=== PATIENT | male | born 1990 | race Caucasian/White ===

== ENCOUNTER 2016-09-26 16:57 | Inpatient (IN) | payer OTHER ==
[~2016-09-26] VITALS: Ht 185.4 cm; Wt 81.0 kg
[2016-09-26 17:01] VITALS: BP 142/78; PULSE 88; RESP 16; TEMP 98.9; O2SAT 92
[2016-09-26 17:04] VITALS: O2SAT 96
[2016-09-26] MEDS ORDERED: LISD40 PO (17:06)
[2016-09-26] MEDS ORDERED: SODIUM CHLOR 0.9% 1000 ML INJ 1,000 ML IV SCH ×2 (17:13→20:00)
[2016-09-26] MEDS ORDERED: HYDROmorphone HCL PF 1 MG/ML VIAL IV PUSH ONE ×2 (17:15→18:30)
[2016-09-26] MEDS ORDERED: ONDANSETRON HCL 4 MG/2 ML VIAL IV PUSH ONE (17:15)
[2016-09-26] MEDS ORDERED: SODIUM CHLORIDE 0.9% FLUSH 5 ML FLUSH IVF PRN ×2 (17:15→21:45)
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
[2016-09-26] MEDS ORDERED: IOHEXOL 350 MG/ML 10 ML VIAL (for RAD DIAG) IV ONE (18:11)
[2016-09-26 18:14] LABS: AUTOMATED NEUTROPHIL # 8.7 TH/MM3 (1.8-7.7); BASOPHIL % 0.3 % (0.0-2.0); EOSINOPHIL % 0.3 % (0.0-4.0); HEMATOCRIT 37.1 % (39.0-51.0); HEMO FLAGS DIFF FINAL; LYMPH % 7.9 % (9.0-44.0); LYMPHOCYTE # 0.8 TH/MM3 (1.0-4.8); MEAN CELL VOLUME 90.7 FL (80.0-100.0); MEAN CORPUSCULAR HEMOGLOBIN 31.6 PG (27.0-34.0); MEAN CORPUSCULAR HGB CONC 34.8 % (32.0-36.0); MONO % 4.8 % (0.0-8.0); NEUT % 86.7 % (16.0-70.0); PLATELET COUNT 202 TH/MM3 (150-450); RED BLOOD COUNT 4.09 MIL/MM3 (4.50-5.90); RED CELL DISTRIBUTION WIDTH 13.2 % (11.6-17.2); WHITE BLOOD COUNT 10.1 TH/MM3 (4.0-11.0)
[2016-09-26 18:20] VITALS: RESP 16; O2SAT 98
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
[2016-09-26 18:30] LABS: APTT (PATIENT) 25.4 SEC (24.3-30.1); INTERNATIONAL NORMALIZED RATIO 1.1 RATIO; PROTHROMBIN TIME - PATIENT 12.5 SEC (9.8-11.6)
[2016-09-26] MEDS ORDERED: SODIUM CHLOR 0.9% 1000 ML INJ 1,000 ML IV ONE (18:30)
[2016-09-26 18:39] LABS: BICARBONATE 27.7 MEQ/L (21.0-32.0); POTASSIUM 4.1 MEQ/L (3.5-5.1)
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
[2016-09-26] MEDS ORDERED: SODIUM CHLORIDE 0.9% FLUSH 5 ML FLUSH IV FLUSH PRN (19:30)
[2016-09-26] MEDS ORDERED: SENNOSIDES 8.6 MG TAB PO PRN (19:45)
[2016-09-26] MEDS ORDERED: MAGNESIUM HYDROXIDE SUSP 30 ML CUP PO PRN (19:45)
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
[2016-09-26 20:11] VITALS: O2SAT 100
[2016-09-26 20:18] VITALS: BP 151/83; PULSE 81; RESP 18; TEMP 98.2; O2SAT 99
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
[2016-09-26] MEDS ORDERED: SODIUM CHLORIDE 0.9% FLUSH 5 ML FLUSH IV FLUSH SCH (21:00)
[2016-09-26] MEDS ORDERED: CYCLOBENZAPRINE HCL 10 MG TAB PO SCH (21:00)
[2016-09-26] MEDS: HYDROmorphone HCL PF 1 MG/ML VIAL IV PRN ×2 (21:13→23:16)
[2016-09-26] MEDS: oxyCODONE HCL 10 MG CONTROLLED RELEASE TAB PO SCH (21:24)
[2016-09-26] MEDS ORDERED: ONDANSETRON HCL 4 MG/2 ML VIAL IV PRN (21:45)
[2016-09-26] MEDS ORDERED: Post-op Orders (for Pharmacy) MISC XX ONE (21:45)
[2016-09-26 22:30] VITALS: BP 133/83; PULSE 88; PULSE 92; RESP 17; TEMP 97.9; O2SAT 100
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
[2016-09-26] MEDS: SODIUM CHLOR 0.9% 1000 ML INJ 1,000 ML IV SCH (23:18)
[2016-09-27] VITALS (12 sets, daily range): BP systolic 116–139; BP diastolic 65–84; PULSE 69–100; RESP 16–24; TEMP 97.9–98.9; O2SAT 94–100
[2016-09-27] MEDS: oxyCODONE/ACETAMINOPHEN 5 MG/325 MG TAB PO PRN ×2 (00:23→08:18)
[2016-09-27] MEDS: HYDROmorphone HCL PF 1 MG/ML VIAL IV PRN ×8 (01:37→22:03)
[2016-09-27 04:44] LABS: AUTOMATED NEUTROPHIL # 7.1 TH/MM3 (1.8-7.7); BASOPHIL % 0.2 % (0.0-2.0); EOSINOPHIL % 0.5 % (0.0-4.0); HEMATOCRIT 34.4 % (39.0-51.0); HEMO FLAGS DIFF FINAL; LYMPH % 8.3 % (9.0-44.0); LYMPHOCYTE # 0.7 TH/MM3 (1.0-4.8); MEAN CORPUSCULAR HEMOGLOBIN 31.7 PG (27.0-34.0); MEAN CORPUSCULAR HGB CONC 35.2 % (32.0-36.0); MONO % 5.7 % (0.0-8.0); NEUT % 85.3 % (16.0-70.0); PLATELET COUNT 164 TH/MM3 (150-450); RED BLOOD COUNT 3.82 MIL/MM3 (4.50-5.90); RED CELL DISTRIBUTION WIDTH 13.5 % (11.6-17.2); WHITE BLOOD COUNT 8.3 TH/MM3 (4.0-11.0)
[2016-09-27 05:32] LABS: POTASSIUM 4.2 MEQ/L (3.5-5.1)
[2016-09-27] MEDS: oxyCODONE HCL 10 MG CONTROLLED RELEASE TAB PO SCH ×3 (05:54→21:51)
--- NOTE | 2016-09-27 06:01 | RADRPT ---
EXAM DATE/TIME: 09/27/2016 04:28 [facility] COMPARISON: No previous studies available for comparison. INDICATIONS : Shortness of breath. MEDICAL HISTORY : None. SURGICAL HISTORY : None. ENCOUNTER: Initial ACUITY: 1 day PAIN SCORE: Non-responsive. LOCATION: Bilateral chest FINDINGS: The lungs are symmetrically aerated. No evidence of pneumothorax. The heart is normal in size. Clint ateral clavicular plates. CONCLUSION: The lungs are clear. No pneumothorax seen. Rafael Caro MD on September 27, 2016 at 5:58 Board Certified Radiologist. This report was verified electronically.
[2016-09-27] MEDS: SODIUM CHLOR 0.9% 1000 ML INJ 1,000 ML IV SCH (07:29)
[2016-09-27] MEDS: SODIUM CHLORIDE 0.9% FLUSH 5 ML FLUSH IVF SCH ×2 (08:18→21:51)
[2016-09-27] MEDS: PANTOPRAZOLE SODIUM 40 MG VIAL IV SCH (08:18)
[2016-09-27] MEDS ORDERED: ENOXAPARIN SODIUM 40 MG/0.4 ML SYRINGE SQ SCH (09:00)
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
[2016-09-27] MEDS: LACTULOSE SYRUP 20 GM/30 ML CUP PO SCH (11:45)
[2016-09-27] MEDS: DOCUSATE SODIUM 50 MG/SENNA 8.6 MG TAB PO SCH ×2 (13:40→21:50)
--- NOTE | 2016-09-27 15:45 | EC ---
Study Study Date:09/27/2016 STUDY CONCLUSIONS SUMMARY - Left ventricle: The cavity size was normal. Wall thickness was normal. Systolic function was normal. The estimated ejection fraction was in the range of 55% to 60%. Wall motion was normal; there were no regional wall motion abnormalities. - Tricuspid valve: Mild regurgitation. If LV function is below 40, please consider prescribing an ACEI or ARB or document rationale for non-use. PROCEDURE DATA STUDY STATUS: Elective. Procedure: Transthoracic echocardiography. Image quality was good. Scanning was performed from the parasternal, apical, and subcostal acoustic windows. Study completion: The patient tolerated the procedure well. Transthoracic echocardiography. M-mode, complete 2D, complete spectral Doppler, and color Doppler. Patient status: Inpatient. CARDIAC ANATOMY LEFT VENTRICLE: The cavity size was normal. Wall thickness was normal. Systolic function was normal. The estimated ejection fraction was in the range of 55% to 60%. Wall motion was normal; there were no regional wall motion abnormalities. AORTIC VALVE: Trileaflet; normal thickness leaflets. Doppler: Transvalvular velocity was within the normal range. There was no stenosis. No regurgitation. Peak gradient: 10mm Hg (S). AORTA: Aortic root: The aortic root was normal in size. MITRAL VALVE: Structurally normal valve. Doppler: Transvalvular velocity was within the normal range. There was no evidence for stenosis. Trace regurgitation. Peak gradient: 2mm Hg (D). LEFT ATRIUM: The atrium was normal in size. RIGHT VENTRICLE: The cavity size was normal. Wall thickness was normal. PULMONIC VALVE: Doppler: Transvalvular velocity was within the normal range. There was no evidence for stenosis. No regurgitation. TRICUSPID VALVE: Structurally normal valve. Doppler: Transvalvular velocity was within the normal range. Mild regurgitation. PULMONARY ARTERY: The main pulmonary artery was normal-sized. Systolic pressure was within the normal range. RIGHT ATRIUM: The atrium was normal in size. PERICARDIUM: There was no pericardial effusion. SYSTEMIC VEINS: Inferior vena cava: The vessel was normal in size. BASIC MEASUREMENTS ADULT NORMAL Left ventricle LV internal dimension, ED, chordal level, 51.8 mm 43-52 PLAX LV internal dimension, ES, chordal level, 37.4 mm 23-38 PLAX Fractional shortening, chordal level, PLAX *28 % >29 LV posterior wall thickness, ED 7.32 mm IVS/LVPW ratio, ED 1.19 <1.3 Ventricular septum Septal thickness, ED 8.71 mm Aortic valve Leaflet separation 23 mm 15-26 Left atrium Anterior-posterior dimension 39 mm Right ventricle RV internal dimension, ED, PLAX 26.9 mm 19-38 BASIC MEASUREMENTS ADULT NORMAL Aortic valve Leaflet separation 23 mm 15-26 Aorta Root diameter, ED 35 mm 20-37 DOPPLER MEASUREMENTS ADULT NORMAL Aortic valve Peak velocity, S 160 cm/s Peak gradient, S 10 mm Hg Mitral valve Peak E-wave velocity 74 cm/s Peak A-wave velocity 61.7 cm/s Peak gradient, D 2 mm Hg Peak E/A ratio 1.2 Tricuspid valve Regurgitant peak velocity 294 cm/s Peak RV-RA gradient, S 35 mm Hg Maximal regurgitant velocity 294 cm/s LEGEND: Mean values are shown as u=mean value. Asterisk (*) garcía values outside specified normal range. Prepared and signed by John Marroquin [id number]
[2016-09-27] MEDS: METHOCARBAMOL 500 MG TAB PO SCH ×2 (17:45→21:50)
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
[2016-09-27] MEDS: MAGNESIUM HYDROXIDE SUSP 30 ML CUP PO SCH (21:50)
[2016-09-27] MEDS: diphenhydrAMINE HCL 25 MG CAP PO PRN (22:03)
[2016-09-28] VITALS (12 sets, daily range): BP systolic 118–143; BP diastolic 62–77; PULSE 80–107; RESP 16–26; TEMP 97.7–98.9; O2SAT 93–100
[2016-09-28] MEDS: HYDROmorphone HCL PF 1 MG/ML VIAL IV PRN ×11 (00:23→23:58)
[2016-09-28 04:15] LABS: AUTOMATED NEUTROPHIL # 5.9 TH/MM3 (1.8-7.7); BASOPHIL % 0.2 % (0.0-2.0); EOSINOPHIL # 0.3 TH/MM3 (0-0.4); EOSINOPHIL % 3.4 % (0.0-4.0); HEMATOCRIT 35.6 % (39.0-51.0); HEMO FLAGS DIFF FINAL; LYMPH % 11.4 % (9.0-44.0); LYMPHOCYTE # 0.9 TH/MM3 (1.0-4.8); MEAN CELL VOLUME 90.2 FL (80.0-100.0); MEAN CORPUSCULAR HEMOGLOBIN 32.1 PG (27.0-34.0); MEAN CORPUSCULAR HGB CONC 35.6 % (32.0-36.0); MONO % 5.9 % (0.0-8.0); NEUT % 79.1 % (16.0-70.0); PLATELET COUNT 171 TH/MM3 (150-450); RED BLOOD COUNT 3.95 MIL/MM3 (4.50-5.90); RED CELL DISTRIBUTION WIDTH 13.1 % (11.6-17.2); WHITE BLOOD COUNT 7.5 TH/MM3 (4.0-11.0)
[2016-09-28 04:40] LABS: ALKALINE PHOSPHATASE 64 U/L (45-117); TOTAL BILIRUBIN ADULT 0.6 MG/DL (0.2-1.0)
[2016-09-28 04:43] LABS: ALT (GPT) 40 U/L (12-78); ANION GAP 6 MEQ/L (5-15); AST (GOT) 65 U/L (15-37); BICARBONATE 32.1 MEQ/L (21.0-32.0); BLOOD UREA NITROGEN 7 MG/DL (7-18); CHLORIDE 100 MEQ/L (98-107); GLOMERULAR FILTRATION RATE 104 ML/MIN (>89); POTASSIUM 4.1 MEQ/L (3.5-5.1); SODIUM (NA) 138 MEQ/L (136-145)
--- NOTE | 2016-09-28 05:56 | RADRPT ---
EXAM DATE/TIME: 09/28/2016 04:21 [facility] COMPARISON: CHEST SINGLE AP, September 27, 2016, 4:28. INDICATIONS : Shortness of breath. MEDICAL HISTORY : None. SURGICAL HISTORY : None. ENCOUNTER: Subsequent ACUITY: 3 days PAIN SCORE: Non-responsive. LOCATION: Bilateral chest FINDINGS: Single AP view of the chest. Mild hazy opacity in the lungs bilaterally with pulmonary vasculature in distinctness suggesting pulmonary vascular congestion/mild pulmonary edema. Cardiomediastinal silhoue tte within normal limits. No evidence of pleural effusion or pneumothorax. CONCLUSION: New bilateral hazy pulmonary opacity suggesting mild pulmonary edema. Rodo Pacheco MD on September 28, 2016 at 5:53 Board Certified Radiologist. This report was verified electronically.
[2016-09-28] MEDS: oxyCODONE HCL 10 MG CONTROLLED RELEASE TAB PO SCH (06:02)
[2016-09-28] MEDS: METHOCARBAMOL 500 MG TAB PO SCH ×3 (06:02→22:13)
[2016-09-28] MEDS: LACTULOSE SYRUP 20 GM/30 ML CUP PO SCH (09:00)
[2016-09-28] MEDS: SODIUM CHLORIDE 0.9% FLUSH 5 ML FLUSH IVF SCH ×2 (09:00→20:20)
[2016-09-28] MEDS: DOCUSATE SODIUM 50 MG/SENNA 8.6 MG TAB PO SCH ×2 (09:12→20:20)
[2016-09-28] MEDS: PANTOPRAZOLE SODIUM 40 MG VIAL IV SCH (09:12)
[2016-09-28] MEDS ORDERED: FUROSEMIDE 40 MG/4 ML VIAL IV PUSH ONE (10:15)
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
[2016-09-28] MEDS ORDERED: KETOROLAC TROMETHAMINE 30 MG/ML (IVP) VIAL IV PUSH SCH (12:00)
[2016-09-28] MEDS ORDERED: oxyCODONE HCL 20 MG CONTROLLED RELEASE TAB PO SCH (12:00)
--- NOTE | 2016-09-28 14:12 | RADRPT ---
EXAM DATE/TIME: 09/28/2016 13:32 [facility] COMPARISON: CT THORACIC SPINE W/O CONTRAST, September 26, 2016, 18:04. CHEST SINGLE AP, September 28, 2016, 4:21. INDICATIONS : Thoracic spine pain MEDICAL HISTORY : None. SURGICAL HISTORY : None. ENCOUNTER: Initial ACUITY: 1 day PAIN SCORE: 10/10 LOCATION: Thoracic spine FINDINGS: 2 lateral projections of the thoracic spine show anterior wedging of T5, T6, and T7. This is stable i n appearance from the prior CT scan. No other anterior wedging appreciated. Orthopedic hardware overl ies the upper chest. CONCLUSION: Anterior wedging of T5, 6, and 7 is stable in appearance compared to the prior CT. Rafael Mcdaniels Jr., MD on September 28, 2016 at 14:07 Board Certified Radiologist. This report was verified electronically.
[2016-09-28] MEDS: oxyCODONE HCL 20 MG CONTROLLED RELEASE TAB PO SCH ×2 (14:51→20:21)
--- NOTE | 2016-09-28 19:22 | HHI.PR ---
Objective Vitals/I&O Vital Signs Date Time Temp Pulse Resp B/P Pulse Ox O2 Delivery O2 Flow Rate FiO2 09/28/16 18:00 107 09/28/16 17:39 16 09/28/16 16:00 97.7 118/66 94 09/28/16 07:00 Nasal Cannula 2.00 Labs Laboratory Tests Test 09/28/16 03:26 White Blood Count 7.5 Red Blood Count 3.95 Hemoglobin 12.7 Hematocrit 35.6 Mean Corpuscular Volume 90.2 Mean Corpuscular Hemoglobin 32.1 Mean Corpuscular Hemoglobin 35.6 Concent Red Cell Distribution Width 13.1 Platelet Count 171 Mean Platelet Volume 7.2 Neutrophils (%) (Auto) 79.1 Lymphocytes (%) (Auto) 11.4 Monocytes (%) (Auto) 5.9 Eosinophils (%) (Auto) 3.4 Basophils (%) (Auto) 0.2 Neutrophils # (Auto) 5.9 Lymphocytes # (Auto) 0.9 Monocytes # (Auto) 0.4 Eosinophils # (Auto) 0.3 Basophils # (Auto) 0.0 CBC Comment DIFF FINAL Differential Comment Sodium Level 138 Potassium Level 4.1 Chloride Level 100 Carbon Dioxide Level 32.1 Anion Gap 6 Blood Urea Nitrogen 7 Creatinine 0.87 Estimat Glomerular Filtration 104 Rate Random Glucose 106 Calcium Level 8.3 Total Bilirubin 0.6 Aspartate Amino Transf 65 (AST/SGOT) Alanine Aminotransferase 40 (ALT/SGPT) Alkaline Phosphatase 64 Total Protein 6.1 Albumin 3.3 A/P Assessment and Plan INJURIES: T4, T5 with epidural hematoma and 50% canal compromise T4/T5 and T5/T6 foraminal stenosis Manubrium fx with 1cm displacement Small BILAT PTX RIGHT lung contusion with lung lac LEFT 5th metatacarpal fx OLD T6, T7 fx NEUROLOGICAL: A&O No paresthesias, BRYSON Robaxin OxyContin CR, Dilaudid Provide analgesia for comfort and pain Serial neuro checks TLSO brace HOB elevated 30 degrees - CARDIOVASCULAR: HR - Sinus Echo- 55-60%, tricuspid regurgitation BP - Continually monitor for hemodynamic instability (shock and hypotension) IVF - Pressors / BP meds H&H- BNP - Volume status - Diuretics - Follow CMP - Electrolyte status - Electrolyte protocol - Obtain Echocardiogram to evaluate for right ventricle dysfunction. RESPIRATORY: Vent settings- Ventilator dependent Chest tubes -40cm suction PF ratio - A-a gradient - (Severe VQ mismatching, R?L shunting, and ?O2 extraction.) Increase PEEP carefully (to assist in oxygenation by recruiting alveoli.) Ventilator compliance - Weaning - O2 Sats - Monitor for hypoxemia Follow ABGs - CT chest - Edema status- Serum osmolality - Lung sounds - Pulmonary toilet - IS, acapella, EZ-pap. CDB. L&S. Bronchodilators - Duonebs. Chest X-Ray results Sputum / secretion amount and color Sputum culture - Aspiration Pneumonia - Antibiotics - VAP protocol in place - Labs tomorrow Chest X-Ray tomorrow GASTROINTESTINAL: Diet - TF - goal, residuals ST - swallow eval Bowel sounds - Bowel regimen - BM - Flexiseal or dignishield - Ascites - N&V - (Zofran) Reglan - Diarrhea - check for C-diff Albumin/ Pre-albumin - Liver function tests - Amylase / Lipase - Pancreatitis - RENAL / URINARY: I&O - BUN / creat Kennedy - Urinalysis - Urine culture - ENDOCRINE: BGM - Monitor for hypoglycemia SSI Insulin gtt - Metformin, glyburide - Hbg A1C - HEMATOLOGY: H&H Bleeding studies (PT, PTT, INR, and Fibrinogen) Continue to monitor for signs and symptoms of bleeding Evaluate need for IVC filter Transfuse for < 7.0 US Lower extremity study - CTA study results - Assess for hypercoagulable state based on clotting in the face of anticoagulation Monitor patient for any bleeding complications Consider further diagnostic testing for Awaiting pathology report INFECTIOUS DISEASE: Follow CBC Leukocytosis - stress response WBC - T-max Administer antipyretics for temp as needed. Blood cultures (Awaiting blood culture results to further gear treatment plans) Urine or sputum cultures - IV antibiotics - Follow sepsis protocol (EGDT) - Monitor pneumonia evolution with repeat chest X-Rays as needed Maintain vigorous aseptic care of central line to avoid blood stream infections Consider a consult to ID for further management INVASIVE LINES: PROPHYLAXIS: VAP - vent bundle, oral care q4 GI - DVT - Mechanical VTE with SCDs. Chemical management with Lovenox SQ (or contraindicated due to TBI, splenic injury) SKIN: Warm / Cool Diaphoretic - Wounds - Sutures or jorge alberto - Skin treatment - bacitracin, silvadene Decubitus - Dressing changes - Splints - ACTIVITY: Status - BR vs. OOB WBS PT and OT ordered. CASE MANAGEMENT: Consulted for assist with DC planning Placement - disposition Plan of care discussed with Patient remains critically ill. Ania Britt Sep 28, 2016 19:22
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
[2016-09-28] MEDS: KETOROLAC TROMETHAMINE 30 MG/ML (IVP) VIAL IV PUSH SCH (20:20)
[2016-09-28] MEDS: MAGNESIUM HYDROXIDE SUSP 30 ML CUP PO SCH (20:21)
[2016-09-28] MEDS: diphenhydrAMINE HCL 25 MG CAP PO PRN (22:14)
[2016-09-29] VITALS (11 sets, daily range): BP systolic 109–145; BP diastolic 63–81; PULSE 73–94; RESP 12–24; TEMP 97.8–98.3; O2SAT 92–99
[2016-09-29] MEDS: HYDROmorphone HCL PF 1 MG/ML VIAL IV PRN ×2 (03:52→05:58)
--- NOTE | 2016-09-29 05:12 | RADRPT ---
EXAM DATE/TIME: 09/29/2016 03:36 [facility] COMPARISON: CHEST SINGLE AP, September 28, 2016, 4:21. INDICATIONS : Short of breath. MEDICAL HISTORY : None. SURGICAL HISTORY : None. ENCOUNTER: Subsequent ACUITY: 4 - 6 days PAIN SCORE: Non-responsive. LOCATION: Bilateral chest FINDINGS: Single AP view of the chest. No significant interval change in mild hazy bilateral pulmonary opacity. Cardiomediastinal silhouette unchanged. No evidence of pneumothorax. CONCLUSION: No change in mild bilateral parenchymal pulmonary opacity. Rodo Pacheco MD on September 29, 2016 at 5:10 Board Certified Radiologist. This report was verified electronically.
[2016-09-29] MEDS: METHOCARBAMOL 500 MG TAB PO SCH ×3 (05:57→20:24)
[2016-09-29] MEDS: LACTULOSE SYRUP 20 GM/30 ML CUP PO SCH (09:23)
[2016-09-29] MEDS: DOCUSATE SODIUM 50 MG/SENNA 8.6 MG TAB PO SCH ×2 (09:24→20:24)
[2016-09-29] MEDS: KETOROLAC TROMETHAMINE 30 MG/ML (IVP) VIAL IV PUSH SCH ×2 (09:24→20:23)
[2016-09-29] MEDS: SODIUM CHLORIDE 0.9% FLUSH 5 ML FLUSH IVF SCH ×2 (09:24→20:26)
[2016-09-29] MEDS: PANTOPRAZOLE SODIUM 40 MG VIAL IV SCH (09:24)
[2016-09-29] MEDS: oxyCODONE HCL 20 MG CONTROLLED RELEASE TAB PO SCH ×2 (09:25→20:25)
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
[2016-09-29] MEDS ORDERED: oxyCODONE/ACETAMINOPHEN 5 MG/325 MG TAB PO PRN (11:00)
[2016-09-29] MEDS ORDERED: diphenhydrAMINE HCL 2%/ZINC ACETATE 0.1% CREAM 30 APPLIC/30 GM TUBE TOPICAL PRN (11:00)
[2016-09-29] MEDS: oxyCODONE/ACETAMINOPHEN 10 MG/325 MG TAB PO PRN ×2 (16:59→20:25)
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
[2016-09-29] MEDS: MAGNESIUM HYDROXIDE SUSP 30 ML CUP PO SCH (20:23)
[2016-09-30 00:32] VITALS: BP 107/58; PULSE 93; RESP 18; TEMP 97; O2SAT 97
[2016-09-30] MEDS: oxyCODONE/ACETAMINOPHEN 10 MG/325 MG TAB PO PRN ×5 (01:10→21:44)
[2016-09-30] MEDS: METHOCARBAMOL 500 MG TAB PO SCH ×3 (06:54→21:43)
[2016-09-30] MEDS ORDERED: MAGNESIUM CITRATE SOLN 300 ML BTL PO ONE (07:45)
[2016-09-30 08:33] VITALS: BP 117/74; PULSE 74; RESP 19; TEMP 97.9; O2SAT 95
[2016-09-30] MEDS: oxyCODONE HCL 20 MG CONTROLLED RELEASE TAB PO SCH ×2 (08:46→21:43)
[2016-09-30] MEDS: LACTULOSE SYRUP 20 GM/30 ML CUP PO SCH (08:47)
[2016-09-30] MEDS: PANTOPRAZOLE SOD 40 MG DELAYED RELEASE TAB PO SCH (08:47)
[2016-09-30] MEDS: DOCUSATE SODIUM 50 MG/SENNA 8.6 MG TAB PO SCH ×2 (08:47→21:43)
[2016-09-30] MEDS: KETOROLAC TROMETHAMINE 30 MG/ML (IVP) VIAL IV PUSH SCH ×2 (08:48→21:44)
[2016-09-30] MEDS: SODIUM CHLORIDE 0.9% FLUSH 5 ML FLUSH IVF SCH ×2 (08:48→21:45)
[2016-09-30] MEDS ORDERED: ceFAZolin 2 GM PREMIX 50 ML IV SCH (12:30)
[2016-09-30] MEDS ORDERED: CEFAZOLIN INJ 500 MG in SODIUM CHLORIDE 0.9% IRR BTL 500 ML IRRIGATION SCH (12:30)
[2016-09-30] MEDS ORDERED: SODIUM CHLORIDE 0.9% FLUSH 5 ML FLUSH IV FLUSH PRN (12:30)
[2016-09-30] MEDS ORDERED: CHLORHEXIDINE GLUCONATE 4% SOLN 120 ML BTL TOPICAL SCH (12:30)
--- NOTE | 2016-09-30 12:32 | HHI.NSPN ---
History Chief Complaint: i am feeling better Interval History He has been practicing getting up with his brace and is voiding in the bathroom. His appetite has improved. He has no sensory level, no cognitive problems, no motor weakness. Review of Systems General: Negative for: fever, chills, insomnia Respiratory: Negative for: shortness of breath, cough, sputum Cardiovascular: Negative for: chest pain, palpitations, orthopnea Gastrointestinal: Negative for: nausea, vomitting, diarrhea, constipation Exam Results Vital Signs Date Time Temp Pulse Resp B/P Pulse Ox O2 Delivery O2 Flow Rate FiO2 09/30/16 08:33 97.9 74 19 117/74 95 09/29/16 07:00 Room Air 09/28/16 07:00 2.00 Intake and Output 09/29/16 09/29/16 09/30/16 08:00 16:00 00:00 Intake Total 600 ml 670 ml 480 ml Output Total 450 ml 350 ml Balance 150 ml 320 ml 480 ml Physical Examination Alert, face symmetric, speech fluent, mood a little depressed. Independent for log rolling, standing, turning, does not need balance aids. No sensory level to LT, no spasticity, no clonus, no Babinski Medical Decision Making Impression and Plan Improving concussion, stable from the T5 fx and epidural bleed. He is safe for sternal repair but the head should be supported and hypotension avoided Plan discharge home with follow up at the [facility] with Dr Fritz Scott after recovery from the OR. Total Minutes: 10 Florencio Ortiz Sep 30, 2016 12:32
[2016-09-30 12:40] VITALS: BP 140/92; PULSE 95; RESP 20; TEMP 96.1; O2SAT 100
[2016-09-30] MEDS ORDERED: LISDEXAMFETAMINE DIMESYLATE 40 MG CAP PO SCH (14:00)
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
[2016-09-30 16:00] VITALS: BP 130/81; PULSE 78; RESP 19; TEMP 96; O2SAT 98
--- NOTE | 2016-09-30 17:26 | HHI.PR ---
Subjective Remarks left hand fracture follow up patient has taken off the splint complains of mild pain Objective Vital Signs Date Time Temp Pulse Resp B/P Pulse Ox O2 Delivery O2 Flow Rate FiO2 09/30/16 16:00 96.0 78 19 130/81 98 09/30/16 12:40 96.1 95 20 140/92 100 09/30/16 08:33 97.9 74 19 117/74 95 09/30/16 00:32 97.0 93 18 107/58 97 09/29/16 21:28 98.0 89 18 116/66 98 09/29/16 18:41 98.0 89 18 109/68 98 I/O 09/29/16 09/29/16 09/29/16 09/30/16 09/30/16 09/30/16 07:00 15:00 23:00 07:00 15:00 23:00 Intake Total 600 ml 670 ml 480 ml 800 ml Output Total 450 ml 350 ml Balance 150 ml 320 ml 480 ml 800 ml Intake Oral 600 ml 670 ml 480 ml 800 ml Output Urine Total 450 ml 350 ml # Voids 1 1 # Bowel Movements 0 1 examination of left hand: no splint in place tenderness noted over the fifth metacarpal neck region no rotational deformity on making a fist x-rays left hand: fifth metacarpal neck with dorsal apex angulation Result Diagram: 09/28/16 0326 09/28/16 0326 Assessment and Plan Assessment and Plan 26 year old male with fracture fifth metacarpal neck left hand Plan; patient has been advised regarding the importance of splint for atleast 2-3 weeks new short arm splint was applied advised regrading range of motion exercises. Ross Mitchell MD Sep 30, 2016 17:26
--- NOTE | 2016-09-30 18:02 | RADRPT ---
EXAM DATE/TIME: 09/30/2016 17:07 [facility] COMPARISON: No previous studies available for comparison. INDICATIONS : Bilateral leg swelling. MEDICAL HISTORY : ADD. Back pain. SURGICAL HISTORY : Orthopedic surgery, left femur. Bilateral clavicle surgery. Bilateral wrist surgery. Left tib/fib edson lili. ENCOUNTER: Initial ACUITY: 1 day PAIN SCORE: 0/10 LOCATION: Bilateral leg. TECHNIQUE: Venous ultrasound of the left and right leg was performed from the inguinal ligament to the proximal calf. Real-time, color Doppler and spectral tracing, compression and augmentation techniques were us ed. FINDINGS: RIGHT LEG: There is normal compressibility of the deep venous system from the inguinal region to the proximal ca lf. No echogenic clot is seen in the lumen of the common femoral, femoral, popliteal, and posterior tibial veins. There is a normal response of the venous system to proximal and distal augmentation an d respiration. LEFT LEG: There is normal compressibility of the deep venous system from the inguinal region to the proximal ca lf. No echogenic clot is seen in the lumen of the common femoral, femoral, popliteal, and posterior tibial veins. There is a normal response of the venous system to proximal and distal augmentation an d respiration. CONCLUSION: No DVT. Ramsey Mullins MD on September 30, 2016 at 18:00 Board Certified Radiologist. This report was verified electronically.
[2016-09-30] MEDS ORDERED: SODIUM CHLORIDE 0.9% FLUSH 5 ML FLUSH IV FLUSH SCH (21:00)
[2016-09-30 21:02] VITALS: BP 127/71; PULSE 95; RESP 18; TEMP 98.6; O2SAT 96
[2016-09-30] MEDS ORDERED: METOPROLOL TARTRATE 25 MG TAB PO PRN (21:15)
[2016-09-30] MEDS ORDERED: INSULIN HUMAN REGULAR 1,000 UNITS/10 ML VIAL SQ PRN (21:15)
[2016-09-30] MEDS: MAGNESIUM HYDROXIDE SUSP 30 ML CUP PO SCH (21:43)
[2016-09-30] MEDS: SODIUM CHLORID 0.9% 500 ML IV SCH (22:00)
[2016-10-01] VITALS: BP 132/80; PULSE 82; RESP 20; TEMP 97.6; O2SAT 96
[2016-10-01] MEDS: oxyCODONE/ACETAMINOPHEN 10 MG/325 MG TAB PO PRN ×2 (03:55→08:23)
[2016-10-01 04:00] VITALS: BP 122/69; PULSE 83; RESP 20; TEMP 97.4; O2SAT 96
[2016-10-01 04:26] LABS: BACTERIA, URINE RARE /hpf; BLOOD, URINE NEG (NEG); COMMENT (UR) CULT NOT INDICATED; CULTURE IF INDICATED CULT NOT INDICATED; GLUCOSE,URINE NEG (NEG); KETONE, URINE NEG (NEG); MUCUS URINE FEW /lpf (OCC); NITRITE,URINE NEG (NEG); PH, URINE 8.5 (5.0-8.5); SQUAMOUS EPITHELIAL CELL URINE 2 /hpf (0-5); TRANSITIONAL EPI CELLS, URINE <1 /hpf; URINE COLOR LIGHT-YELLOW (YELLW/STRAW)
[2016-10-01] MEDS: METHOCARBAMOL 500 MG TAB PO SCH ×3 (05:52→21:31)
[2016-10-01] MEDS: LACTATED RINGER'S 1000 ML IV SCH ×2 (05:53→22:00)
[2016-10-01 08:00] VITALS: BP 123/73; PULSE 82; RESP 20; TEMP 97.8; O2SAT 94
[2016-10-01] MEDS: PANTOPRAZOLE SOD 40 MG DELAYED RELEASE TAB PO SCH (08:22)
[2016-10-01] MEDS: KETOROLAC TROMETHAMINE 30 MG/ML (IVP) VIAL IV PUSH SCH ×3 (08:22→21:33)
[2016-10-01] MEDS: oxyCODONE HCL 20 MG CONTROLLED RELEASE TAB PO SCH ×2 (08:22→21:32)
[2016-10-01] MEDS: LACTULOSE SYRUP 20 GM/30 ML CUP PO SCH (08:23)
[2016-10-01] MEDS: DOCUSATE SODIUM 50 MG/SENNA 8.6 MG TAB PO SCH ×2 (08:23→21:32)
[2016-10-01] MEDS: SODIUM CHLORIDE 0.9% FLUSH 5 ML FLUSH IVF SCH ×2 (08:23→21:32)
[2016-10-01] MEDS: DEXTROAMPHETAMINE/AMPHETAMINE 30 MG TAB PO SCH (08:23)
[2016-10-01] MEDS ORDERED: VYVANSE 40 MG PO SCH (09:00)
--- NOTE | 2016-10-01 09:12 | HHI.NSPN ---
History Chief Complaint: pain with coughing in the chest Interval History He has been practicing getting up with his brace and is voiding in the bathroom. His appetite has improved. He has no sensory level, no cognitive problems, no motor weakness. 10/01/16 He had a coughing spell this am. His pain is now mostly on the chest. He is independent for getting OOB and walking Review of Systems General: Negative for: fever, chills, insomnia Respiratory: Positive for: cough Cardiovascular: Positive for: chest pain Gastrointestinal: Negative for: nausea, vomitting, diarrhea, constipation Exam Results Vital Signs Date Time Temp Pulse Resp B/P Pulse Ox O2 Delivery O2 Flow Rate FiO2 10/01/16 08:00 97.8 82 20 123/73 94 09/29/16 07:00 Room Air 09/28/16 07:00 2.00 Intake and Output 09/30/16 09/30/16 10/01/16 08:00 16:00 00:00 Intake Total 800 ml Balance 800 ml Physical Examination Alert, face symmetric, speech fluent, mood improved since OOB Independent for log rolling, standing, turning, does not need balance aids. No sensory level to LT, no spasticity, no clonus, no Babinski Lab, Micro, Other Results Laboratory Tests Test 09/30/16 10/01/16 13:00 04:00 Blood Type O POSITIVE Antibody Screen NEGATIVE Urine Color LIGHT-YELLOW Urine Turbidity CLEAR Urine pH 8.5 Urine Specific [place] 1.008 Urine Protein NEG mg/dL Urine Glucose (UA) NEG mg/dL Urine Ketones NEG mg/dL Urine Occult Blood NEG Urine Nitrite NEG Urine Bilirubin NEG Urine Urobilinogen LESS THAN 2.0 MG/DL Urine Leukocyte Esterase NEG Urine RBC 1 /hpf Urine WBC 1 /hpf Urine Squamous Epithelial 2 /hpf Cells Urine Transitional Epithelial <1 /hpf Cells Urine Bacteria RARE /hpf Urine Mucus FEW /lpf Microscopic Urinalysis Comment CULT NOT INDICATED Medical Decision Making Impression and Plan Improving concussion, stable from the T5 fx and epidural bleed. He is safe for sternal repair but the head should be supported and hypotension avoided Plan discharge home after sternal repair with follow up at the [facility] with Dr Fritz Scott after recovery from the OR or with other neurosurgeon in network. Total Minutes: 10 Florencio Ortiz Oct 01, 2016 09:11
[2016-10-01] MEDS ORDERED: OXYC20TA17 PO (09:15)
[2016-10-01] MEDS ORDERED: OXYC1TAB36 PO (09:15)
[2016-10-01] MEDS ORDERED: METH500T3 PO (09:15)
[2016-10-01] MEDS ORDERED: LACTATED RINGER'S 1000 ML INJ 1,000 ML IV ONE (12:00)
[2016-10-01] MEDS ORDERED: NEOSTIGMINE 3 MG/3 ML SYR IV ONE (12:00)
[2016-10-01] MEDS ORDERED: PROPOFOL 200 MG/20 ML AMP IV ONE (12:00)
[2016-10-01] MEDS ORDERED: ONDANSETRON HCL 4 MG/2 ML VIAL IV PUSH ONE (12:00)
[2016-10-01] MEDS ORDERED: FAMOTIDINE 20 MG/2 ML VIAL ONE (12:03)
[2016-10-01] MEDS ORDERED: MIDAZOLAM HCL 2 MG/2 ML VIAL ONE (12:03)
[2016-10-01] MEDS ORDERED: ACETAMINOPHEN 1000 MG/100 ML VIAL IV ONE (12:03)
[2016-10-01] MEDS ORDERED: DICLOFENAC SODIUM 37.5 MG/ML VIAL IV PUSH ONE (12:03)
[2016-10-01] MEDS ORDERED: ceFAZolin INJ 1,000 MG VIAL ONE ×2 (12:05→13:41)
[2016-10-01] MEDS: SODIUM CHLORID 0.9% 500 ML IV SCH (13:22)
[2016-10-01] MEDS ORDERED: fentaNYL CITRATE 250 MCG/5 ML AMP ONE (13:48)
--- NOTE | 2016-10-01 13:52 | EKG ---
Date Performed: 09/30/2016 Time Performed: 22:39:28 PTAGE: 26 years EKG: Sinus rhythm NORMAL ECG NO PREVIOUS TRACING DOCTOR: Akin Diallo Interpretating Date/Time 10/01/2016 13:49:32
--- NOTE | 2016-10-01 14:14 | RADRPT ---
EXAM DATE/TIME: 10/01/2016 13:42 [facility] COMPARISON: CT THORAX W CONTRAST, September 22, 2016, 14:33. INDICATIONS : Fracture sternum, ORIF sternum, hardware placement. MEDICAL HISTORY : Fracture sternum SURGICAL HISTORY : None. ENCOUNTER: Initial ACUITY: 1 day PAIN SCORE: Non-responsive. LOCATION: Sternum FINDINGS: There is a plate along the anterior upper sternum at the manubriosternal junction. The upper sternum appears well aligned. CONCLUSION: Successful ORIF of an upper sternal fracture. Ramsey Mullins MD on October 01, 2016 at 14:10 Board Certified Radiologist. This report was verified electronically.
[2016-10-01] MEDS ORDERED: ACETAMINOPHEN 325 MG TAB PO PRN (14:15)
[2016-10-01] MEDS ORDERED: Post-op Orders (for Pharmacy) MISC OTHER ONE (14:15)
[2016-10-01] MEDS ORDERED: ONDANSETRON HCL 4 MG/2 ML VIAL IV PUSH PRN (14:15)
[2016-10-01] MEDS ORDERED: oxyCODONE/ACETAMINOPHEN 5 MG/325 MG TAB PO PRN (14:15)
[2016-10-01] MEDS ORDERED: MAGNESIUM HYDROXIDE SUSP 30 ML CUP PO PRN (14:15)
[2016-10-01] MEDS ORDERED: RESP: ALBUTEROL 2.5 MG/3 ML NEB (PRN) NEB (14:15)
[2016-10-01] MEDS ORDERED: DO NOT ADM ANY ANTICOAGULANT DRUGS XX PRN (14:19)
[2016-10-01] MEDS ORDERED: *morphine SULFATE 8 MG/ML PERIprocedure ONLY ONE ×3 (14:53→15:33)
--- NOTE | 2016-10-01 15:29 | RADRPT ---
EXAM DATE/TIME: 10/01/2016 15:02 [facility] COMPARISON: CHEST SINGLE AP, September 29, 2016, 3:36. INDICATIONS : S/p thoracotomy MEDICAL HISTORY : None. SURGICAL HISTORY : None. ENCOUNTER: Initial ACUITY: 4 - 6 days PAIN SCORE: Non-responsive. LOCATION: Bilateral chest FINDINGS: The heart size is normal. There appears to be surgical hardware over the midline in the region of th e sternum. There is surgical hardware at the superior lateral aspects of the clavicles bilaterally. There is some hazy density identified at the bases being worse on the left with some silhouetting of the left hemidiaphragm. Clips and fasteners are seen around the glenohumeral regions. CONCLUSION: Minimal hazy density identified at the bases likely representing some atelectasis, co nsolidation or minimal effusion. Ramsey Mullins MD on October 01, 2016 at 15:24 Board Certified Radiologist. This report was verified electronically.
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
[2016-10-01] MEDS: oxyCODONE/ACETAMINOPHEN 5 MG/325 MG TAB PO PRN ×3 (16:06→23:34)
[2016-10-01 16:47] VITALS: BP 124/69; PULSE 84; RESP 20; TEMP 97.8; O2SAT 99
[2016-10-01] MEDS: PCA - TOTAL MG MORPHINE DELIVERED PER SHIFT SCH ×2 (17:00→22:00)
[2016-10-01] MEDS ORDERED: NALOXONE HCL 0.4 MG/ML AMP IV PRN (17:00)
[2016-10-01] MEDS ORDERED: MORPHINE SULFATE 30 MG/30 ML PCA IV SCH (17:00)
[2016-10-01] MEDS ORDERED: WALKER WHEELS/F1 MIS (17:37)
--- NOTE | 2016-10-01 17:38 | HHI.FF ---
Face to Face Verification Diagnosis: (1) Epidural hematoma (2) Sternal fracture (3) Multiple fractures of thoracic spine Physical Therapy Order: Evaluate and Treat, Improve ambulation, Strength and gait training Home Health Nursing Order: Nursing assessment with vital signs I have seen patient Wojciech Brown on 10/01/16. My clinical findings support the need for the requested home health care services because: Limited ability to care for self High risk of falls I certify that my clinical findings support that this patient is homebound because: Unsteady gait/balance Ania Britt Oct 01, 2016 17:38
[2016-10-01 20:00] VITALS: BP 120/59; PULSE 69; RESP 20; TEMP 96.8; O2SAT 97
[2016-10-01] MEDS ORDERED: DOCUSATE CALCIUM 240 MG CAP PO SCH (21:00)
[2016-10-01] MEDS ORDERED: PANTOPRAZOLE SOD 40 MG DELAYED RELEASE TAB PO SCH (21:00)
[2016-10-01] MEDS: MAGNESIUM HYDROXIDE SUSP 30 ML CUP PO SCH (21:31)
[2016-10-02] VITALS: BP 116/61; PULSE 69; RESP 20; TEMP 98.2; O2SAT 97
[2016-10-02] MEDS: ACETAMINOPHEN 1000 MG/100 ML VIAL IV SCH ×2 (02:15→08:43)
[2016-10-02] MEDS: KETOROLAC TROMETHAMINE 30 MG/ML (IVP) VIAL IV PUSH SCH ×2 (02:55→08:34)
[2016-10-02] MEDS: oxyCODONE/ACETAMINOPHEN 5 MG/325 MG TAB PO PRN ×3 (02:56→12:53)
[2016-10-02] MEDS: RESP: ALBUTEROL 2.5 MG/3 ML NEB (SCH) NEB ×2 (03:26→10:44)
[2016-10-02 04:00] VITALS: BP 135/55; PULSE 68; RESP 20; TEMP 98.1; O2SAT 97
[2016-10-02] MEDS: METHOCARBAMOL 500 MG TAB PO SCH ×2 (07:38→13:40)
--- NOTE | 2016-10-02 08:07 | RADRPT ---
EXAM DATE/TIME: 10/02/2016 06:46 [place] COMPARISON: CHEST SINGLE AP, October 01, 2016, 15:02. INDICATIONS: Short of breath, chest and back pain MEDICAL HISTORY: Bilateral clavicle fractures, sternum fracture, T-spine fracture SURGICAL HISTORY: Thoracotomy, surgical repair of sternum, both clavicles ENCOUNTER: Subsequent ACUITY: 1 week PAIN SCORE: 6/10 LOCATION: Bilateral chest FINDINGS: Repair of clavicle fractures and anterior ribs are noted. Minimal bibasilar parenchymal changes are noted. Heart and pulmonary vascularity are normal. There is no pneumothorax. CONCLUSION: Minimal bibasilar parenchymal changes as described above. Kaushal Mayen MD FACR on October 02, 2016 at 7:51 Board Certified Radiologist. This report was verified electronically.
[2016-10-02] MEDS: DEXTROAMPHETAMINE/AMPHETAMINE 30 MG TAB PO SCH (08:32)
[2016-10-02] MEDS: LACTULOSE SYRUP 20 GM/30 ML CUP PO SCH (08:32)
[2016-10-02] MEDS: oxyCODONE HCL 20 MG CONTROLLED RELEASE TAB PO SCH (08:32)
[2016-10-02] MEDS: DOCUSATE SODIUM 50 MG/SENNA 8.6 MG TAB PO SCH (08:33)
[2016-10-02 08:37] VITALS: BP 126/69; PULSE 77; RESP 18; TEMP 97.3; O2SAT 96
[2016-10-02] MEDS: SODIUM CHLORIDE 0.9% FLUSH 5 ML FLUSH IVF SCH (08:45)
[2016-10-02 12:05] VITALS: BP 154/89; PULSE 93; RESP 18; TEMP 96.1; O2SAT 100
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
--- NOTE | 2016-10-02 13:14 | PD.CAR.PN ---
CVT Progress Note Subjective/Hospital Course: pt doing well on room air sternal incision intact and well approximated / stable no clicking has TSLO brace in place Objective: GENERAL: SKIN: Warm and dry./ sternal incision intact and well approximated HEAD: Normocephalic. EYES: No scleral icterus. No injection or drainage. NECK: Supple, trachea midline. No JVD or lymphadenopathy. CARDIOVASCULAR: Regular rate and rhythm without murmurs, gallops, or rubs. RESPIRATORY: Breath sounds equal bilaterally. No accessory muscle use. GASTROINTESTINAL: Abdomen soft, non-tender, nondistended. MUSCULOSKELETAL: No cyanosis, or edema. BACK: Nontender without obvious deformity. No CVA tenderness. Vital Signs Date Time Temp Pulse Resp B/P Pulse Ox O2 Delivery O2 Flow Rate FiO2 10/02/16 12:05 96.1 93 18 154/89 100 10/02/16 08:37 97.3 77 18 126/69 96 10/02/16 04:00 98.1 68 20 135/55 97 10/02/16 00:00 98.2 69 20 116/61 97 10/01/16 20:00 96.8 69 20 120/59 97 10/01/16 16:47 97.8 84 20 124/69 99 10/01/16 15:50 84 16 143/82 96 Nasal Cannula 2 10/01/16 15:30 81 16 133/84 99 Nasal Cannula 2 10/01/16 15:15 80 16 142/79 98 Nasal Cannula 2 10/01/16 15:00 69 16 129/74 97 Nasal Cannula 2 10/01/16 14:45 75 16 135/76 95 Nasal Cannula 2 10/01/16 14:30 90 16 131/70 96 Nasal Cannula 2 10/01/16 14:15 97.9 84 16 132/74 95 Simple Mask Result Diagram: 09/28/16 0326 09/28/16 0326 Telemetry: NSR (1) Sternal fracture Plan: s/p exploration of sternum, reduction of sternomanubrial fx, plate fixation ,placement of Biomet titanium plate doing well , ok to dc, with sternal precautions x 4 weeks, to f/u with PCP and spinal surgery in [facility] Problem Qualifiers (1) Sternal fracture: Qualified Code: S22.21XA - Closed fracture of manubrium, initial encounter Rosmery Hager Oct 02, 2016 13:13
[2016-10-02] MEDS: PCA - TOTAL MG MORPHINE DELIVERED PER SHIFT SCH (14:00)
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
== END 2016-10-02 15:15 | disposition home or self-care (01) | DRG 958 ==
LOC: NEPE 16:57 → NEDA 18:54 → N03B 22:20 → N05A 09-29 17:53
PROVIDERS: ADMIT Surgery; ATTEND Surgery
PROC: 0PS000Z Reposition Sternum with Rigid Plate Internal Fixation Device, Open Approach (ICD-10-PCS; principal; 2016-10-01 12:21)
DX: S22.21XA Fracture of manubrium, initial encounter for closed fracture (principal); S06.4X9A Epidural hemorrhage with loss of consciousness of unspecified duration, initial encounter; S27.0XXA Traumatic pneumothorax, initial encounter; S22.048A Other fracture of fourth thoracic vertebra, initial encounter for closed fracture; S27.331A Laceration of lung, unilateral, initial encounter; S27.322A Contusion of lung, bilateral, initial encounter; I07.1 Rheumatic tricuspid insufficiency; S22.058A Other fracture of T5-T6 vertebra, initial encounter for closed fracture; S62.337A Displaced fracture of neck of fifth metacarpal bone, left hand, initial encounter for closed fracture; Y93.89 Activity, other specified; Y92.838 Other recreation area as the place of occurrence of the external cause; Y99.0 Civilian activity done for income or pay; F90.9 Attention-deficit hyperactivity disorder, unspecified type; S22.069D Unspecified fracture of T7-T8 vertebra, subsequent encounter for fracture with routine healing; S62.002D Unspecified fracture of navicular [scaphoid] bone of left wrist, subsequent encounter for fracture with routine healing; V28.0XXA Motorcycle driver injured in noncollision transport accident in nontraffic accident, initial encounter; S42.009D Fracture of unspecified part of unspecified clavicle, subsequent encounter for fracture with routine healing; M48.00 Spinal stenosis, site unspecified; S62.307A Unspecified fracture of fifth metacarpal bone, left hand, initial encounter for closed fracture
CPT/HCPCS: 70450; 71010; 71120; 71260; 72020; 72125; 72128; 72146; 73130; 74177; 80048; 80053; 81001; 85025; 85610; 85730; 86850; 86900; 86901; 87015; 87070; 87102; 87116; 87205; 87206; 87641; 93005; 93306; 93970; 94150; 94664; 96374; 96375; 96376; C1713; C9113; J0131; J0690; J1130; J1170; J1885; J1940; J2250; J2270; J2405; J2710; J3010; J7030; J7120; J7613; L0150; L0200; L0484; Q9967